=== PATIENT | female | born 2000 | race Caucasian/White ===

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

== ENCOUNTER 2022-01-28 20:21 | Emergency (ER) | payer MEDICAID ==
[~2022-01-28] VITALS: Ht 165.1 cm; Wt 59.0 kg
--- NOTE | 2022-01-28 21:10 | NUR ---
TO ER BED 16. BIBFRIEND C/O PELVIC PAIN. CHANGED INTO GOWN. URINE COLLECTED. BREATHING EVEN AND UNLABORED. CONNECTED TO MONITOR. VSS. AWAITING MD BERNAL
[2022-01-28 21:48] LABS: BILIRUBIN,URINE NEGATIVE (NEGATIVE); COLOR,URINE YELLOW (YELLOW); LEUKOCYTE ESTERASE ,URINE SMALL (NEGATIVE); NITRITE, URINE NEGATIVE (NEGATIVE); PROTEIN,URINE NEGATIVE (NEGATIVE); UGLUCOSE NEGATIVE (NEGATIVE); UROBILINOGEN,URINE 0.2 EU/dL (0.2)
--- NOTE | 2022-01-28 21:57 | NUR ---
US AT BEDSIDE
[2022-01-28 21:58] LABS: BACTERIA,URINE 1+ /HPF (None Seen); SQUAMOUS EPITHELIAL CELL,UR Few /HPF (None Seen); WBC,URINE 21-50 /HPF (0-3)
[2022-01-28] MEDS ORDERED: CEPH500T PO (22:40)
[2022-01-28 23:14] VITALS: BP 129/68
== END 2022-01-28 23:15 | disposition home or self-care (01) ==
LOC: ER 20:27
DX: R10.2 Pelvic and perineal pain (principal); Z79.899 Other long term (current) drug therapy
CPT/HCPCS: 76856-TC; 81001; 84703-TC; 87086-TC

== ENCOUNTER 2025-04-03 17:02 | Emergency (ER) | payer MEDICAID ==
[~2025-04-03] VITALS: Ht 157.5 cm; Wt 57.6 kg
[~2025-04-03 17:02] MED LIST: CEPH500T PO
[2025-04-03 17:17] VITALS: BP 99/57; TEMP 98.1
[2025-04-03] MEDS ORDERED: CEPH-570 PO (17:38)
[2025-04-03 18:13] VITALS: O2SAT 99
== END 2025-04-03 18:14 | disposition home or self-care (01) ==
LOC: ER 17:13
DX: H92.02 Otalgia, left ear (principal); L08.9 Local infection of the skin and subcutaneous tissue, unspecified